=== PATIENT | female | born 1965 | race Caucasian/White ===

== ENCOUNTER 2018-01-23 13:06 | Day surgery (SDC) | payer OTHER ==
[~2018-01-23 13:06] MED LIST: ACETAMINOPHEN 1,000 MG/100 ML BTL IV ONE; CEFAZOLIN 2 Gram 2 GM/50 ML BAG IVPB ONE
[2018-01-23] MEDS ORDERED: KETOROLAC 30 MG/ML VIAL IVP ONE (13:07)
[2018-01-23] MEDS ORDERED: BUPIVACAINE 0.25% W/EPI MPF 30ML VIAL IVP ONE (13:07)
[2018-01-23] MEDS ORDERED: SEVOFLURANE 250 ML INH ONE (13:07)
[2018-01-23] MEDS ORDERED: PROPOFOL 10 MG/ML VIAL IV ONE (13:07)
--- NOTE | 2018-01-23 21:08 | Operative Note ---
DATE: 01/23/18 PREOPERATIVE DIAGNOSIS: RUIZ FRACTURE RIGHT FIFTH METATARSAL. POSTOPERATIVE DIAGNOSIS: RUIZ FRACTURE RIGHT FIFTH METATARSAL. PROCEDURE: OPEN REDUCTION INTERNAL FIXATION RIGHT FIFTH METATARSAL WITH 4.0 CANNULATED SCREW. STAFF SURGEON: DR. AWAIS ROSADO ANESTHESIA: GENERAL. PREPARATION: CHLORAPREP. INDIVIDUAL CONSIDERATIONS: NONE. PROCEDURE: The patient was taken to the Operating Room and placed supine on the operating table. She had a successful induction with general anesthetic. Her right leg was prepped and draped in the usual fashion. Under fluoroscopy, I took the 20 guidepin for the [employer] 4.0 cannulate screw through the skin and through the tip of the base of the fifth metatarsal. With power, I then drilled the more proximal piece across the fracture site and then under fluoroscopy into the endosteal canal. This was verified by fluoroscopy. I took a size 56 partially-threaded cannulated screw after over-drilling proximally and placed this and watched compression across the fracture site as I tightened down the screw. After irrigation, I closed the skin with yuko, infiltrated the skin with 0.25% Marcaine with Epinephrine, and a small dressing was applied. She was taken back to Recovery in good condition. There were no complications. JOB NUMBER: [id number] MTDD
== END 2018-01-23 17:06 | disposition home or self-care (01) ==
LOC: SUR 13:06
PROVIDERS: ATTEND Orthopaedic Surgery
DX: S92.351B Displaced fracture of fifth metatarsal bone, right foot, initial encounter for open fracture (principal)
CPT/HCPCS: 76000; 28485; 01480; J1885; J0690; C1713